=== PATIENT | male | born 2005 | race Caucasian/White ===

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

== ENCOUNTER 2023-08-29 15:47 | Emergency (ER) | payer SELFPAY ==
[2023-08-29 17:35] VITALS: BP 107/64; PULSE 101; RESP 20; TEMP 36.7; O2SAT 99; BMI 22.4
--- NOTE | 2023-08-29 17:37 | EXP.UTC ---
Discharge Plan Disposition Patient Disposition: Home, Self-Care Condition: Good Prescriptions Prescriptions: New ondansetron 4 mg Tablet,Disintegrating 4 mg PO Q8H PRN (Reason: Nausea) Qty: 12 0RF No Action Vyvanse 60 mg capsule 60 mg PO DAILY Referrals Follow up/Referrals: Oren Russo MD [Primary Care Provider] - See instructions Activity Restrictions/Add. Instructions Additional Instructions/Restrictions: Drink plenty of fluids. Water or an electrolyte drink like gatorade would be best. Take tylenol or ibuprofen for pain or fever. Take the zofran (ondesetron) as directed for nausea/vomiting. Follow up with your regular doctor. GO TO THE ER FOR ANY WORSENING SYMPTOMS Clinical Impressions Clinical Impression: Gastroenteritis, Acute viral syndrome Stand Alone Forms Stand Alone Forms: Work/School Release Instructions Patient Instructions: Viral Gastroenteritis, DI for Viral Gastroenteritis -- Adult, DI for Viral Syndrome, Ondansetron Discharge ED Provider: Quan Anaya [facility] General Stated complaint: body aches, diarrhes Time Seen by Provider: 08/29/23 17:37 History of Present Illness Provider Complaint: He states that since this morning he has nausea, body aches and diarrhea. He has had abdominal cramping on and off through the day. He denies abdominal pain. Related Data Home Medications Medication Instructions Recorded Confirmed lisdexamfetamine 60 mg capsule 60 mg PO DAILY ADHD 05/02/22 08/07/23 (Vyvanse) Previous Rx's Medication Instructions Recorded ondansetron 4 mg disintegrating 4 mg PO Q8H PRN Nausea #12 tabs 08/29/23 tablet Allergies Allergy/AdvReac Type Severity Reaction Status Date / Time Penicillins Allergy Unknown Verified 08/07/23 10:45 [facility] Disclaimer: The information contained in this section may have been updated after the patient was seen, as this information can be updated by other users. Medical History ADHD Social History Smoking Status: Never smoker alcohol intake: never substance use type: denies use current occupational status: employed Travel in the last 8 weeks: None household members: family housing: house ROS Obtained: Yes All systems reviewed & no additional complaints except as documented Constitutional Constitutional: Denies chills, Denies fever(s) and Reports poor appetite ENT Ears, Nose, Mouth, and Throat: Denies dizziness and Denies sore throat Cardiovascular Cardiovascular: Denies dyspnea Respiratory Respiratory: Denies chest congestion, Denies cough and Denies dyspnea Gastrointestinal Gastrointestingal: Reports as per HPI, cramping, diarrhea, nausea and vomiting; Denies abdominal pain Musculoskeletal Musculoskeletal: Denies arthralgias Integumentary/Breasts Skin/Breast: Denies rash Neurologic Neurologic: Denies dizziness Physical Exam General General appearance: alert and in no apparent distress Head Head exam: atraumatic and normocephalic Eye Eye exam: Present normal appearance, PERRL and EOMI ENT ENT exam: Present normal exam, normal oropharynx, mucous membranes moist, TM's normal bilaterally and normal external ear exam Neck Neck exam: Present normal inspection, full ROM and trachea midline; Absent tenderness, meningismus or lymphadenopathy Chest Chest inspection: Present normal inspection and symmetric chest wall rise; Absent tenderness, rash or abscess Respiratory Respiratory exam: Present normal lung sounds bilaterally; Absent respiratory distress, wheezes or stridor Cardiovascular Cardiovascular exam: Present regular rate and normal rhythm; Absent irregular rhythm, systolic murmur, diastolic murmur or JVD Abdominal Exam Abdominal exam: Present soft and hyperactive bowel sounds; Absent distention, tenderness, guarding, rebound, rigidity, psoas sign, obturator sign, heel tap sign, Gonzalez's sign, Rovsing's sign or tenderness at McBurney's Point Extremities Exam Extremities exam: Present normal inspection and full ROM; Absent tenderness Back Exam Back exam: Present normal inspection and full ROM; Absent tenderness, CVA tenderness (R) or CVA tenderness (L) Neurological Exam Neurological exam: Present alert, oriented X3 and CN II-XII intact Psychiatric Psychiatric exam: Present normal affect and normal mood Skin Skin exam: Present warm, dry, intact and normal color Lymphatic Lymphatic Findings: no adenopathy Medical Decision Making Medical Records Medical records reviewed: No I reviewed the patient's medical records. Panda Inquiry Pt receiving controlled substance: No Lab Data Lab results reviewed: Yes I reviewed the patient's lab results.
[2023-08-29 18:02] VITALS: BP 107/64; PULSE 101; RESP 20; TEMP 36.7; O2SAT 99
[2023-08-29 18:17] LABS: Coronavirus 19, PCR Not Detected (NotDetected); Influenza A, PCR Not Detected (NotDetected); Influenza B, PCR Not Detected (NotDetected)
[2023-08-29 19:11] LABS: UTC Strep Screen (Rapid) Negative (Negative)
[2023-08-29 19:12] LABS: UTC Influenza A Antigen Negative (Negative); UTC Influenza B Antigen Negative (Negative)
== END 2023-08-29 18:12 | disposition home or self-care (01) ==
PROVIDERS: Emergency Provider Nurse Practitioner Family; PCP Family Medicine
DX: K52.9 Noninfective gastroenteritis and colitis, unspecified (principal); B34.9 Viral infection, unspecified; R10.84 Generalized abdominal pain
CPT/HCPCS: 87636; 87804; 87880; 99204; 99212; G0463

== ENCOUNTER 2025-04-19 05:53 | Emergency (ER) | payer BC, SELFPAY ==
--- OUTSIDE RECORDS SUMMARY | 2024-03-31 09:30 | XMS_ITS ---
Author Organization [facility] PE D MAIN Address [address] [place] [address] Care Team Providers Care Enrollment Management Vice President Name Role Phone Josh Valenzuela Primary Care Provider REASON FOR VISIT med ck Encounters Encounter Location Date Provider Diagnosis [facility] [address] [address] 03/31/2024 Josh Valenzuela Plan Of Treatment Next Appt Details Provider Name:Yin Gonzalez, 06/04/2025 02:15:00 PM, [address] [place] [address], [phone], Progress Notes * Mahesh ALLEN KDOB:2005 (19 yo M)Acc No.[id number]:03/31/2024 Progress Notes Patient: Shola VERMA Mahesh Valverde Provider: Charisse Valenzuela MD :2005 A ge:18 Y S ex:Male Date:03/31/2024 [facility] [facility] [id number] Subjective: * Chief Complaints: * 1 . Med ck. * Medical History: Objective: * Vitals: Assessment: Plan: * Treatment: * * Electronic signature of Paul Valenzuela MD FAAP on 04/19/2025 at 06:16 AM EST Sign off status: Pending * Provider: Charisse Valenzuela MD Date: 1 Generated for Xavier emmanuel/Refugio/Dion on: 06/19/2024 06:16 AM EST
--- OUTSIDE RECORDS SUMMARY | 2024-06-02 09:15 | XMS_ITS ---
Author Organization [facility] PE D MAIN Address [address] [place] [address] Care Team Providers Care Medical Claims Assistant Name Role Phone Josh Valenzuela Primary Care Provider [phone] REASON FOR VISIT med ck Encounters Encounter Location Date Provider Diagnosis [facility] [address] [address] 06/02/2024 Josh Valenzuela Plan Of Treatment Next Appt Details Provider Name:Yin Gonzalez, 06/04/2025 02:15:00 PM, [address] [place] [address], [phone], Progress Notes * Mahesh ALLEN KDOB:2005 (19 yo M)Acc No.[id number]:06/02/2024 Progress Notes Patient: Shola VERMA Mahesh Valverde Provider: Charisse Valenzuela MD :2005 A ge:18 Y S ex:Male Date:06/02/2024 [address] [facility] [id number] Subjective: * Chief Complaints: * 1 . Med ck. * Medical History: Objective: * Vitals: Assessment: Plan: * Treatment: * * Electronic signature of Paul Valenzuela MD FAAP on 04/19/2025 at 06:15 AM EST Sign off status: Pending * Provider: Charisse Valenzuela MD Date: 1 08/03/2023 Generated for Xavier emmanuel/Refugio/Dion on: 06/19/2024 06:15 AM EST
--- OUTSIDE RECORDS SUMMARY | 2024-09-19 16:30 | XMS_ITS ---
Author Organization [facility] PE D MAIN Address [address] [facility] [address] [place] [address] Care Team Providers Care Dental Financial Coordinator Name Role Phone Josh Valenzuela Primary Care Provider Migration, Provider Unavailable Unavailable Allergies Allergen (clinical drug ingredient) Drug/Non Drug Allergy documented on EMR Reaction Allergy Type Onset Date Status Penicillin Unknown Drug Allergy Active REASON FOR VISIT Multum To [facility] Conversion Encounter Medications Medication SIG (Take, Route, Frequency, Duration) Notes Start Date End Date Status LISDEXAMFETAMINE 40 MG 1 CAP(S) ORALLY ONCE A DAY (IN THE MORNING); Duration: 30 DAYS *Please review for potential replacement for e-prescription and drug interaction check* 04/07/2024 Active Encounters Encounter Location Date Provider Diagnosis [facility] PED MAIN [address] [facility] [address] [place] [address] 09/19/2024 Provider Migration Adult attention deficit disorder F98.8 Assessments Encounter Date Diagnosis (ICD Code) Assessment Notes Treatment Notes Treatment Clinical Notes Section Notes 09/19/2024 Adult attention deficit disorder (ICD-10 - F98.8) Plan Of Treatment Medication Medication Name Sig Start Date Stop Date Notes LISDEXAMFETAMINE 40 MG 1 CAP(S) ORALLY ONCE A DAY (IN THE MORNING); Duration: 30 DAYS 04/07/2024 *Please review for potential replacement for e-prescription and drug interaction check* Next Appt Details Provider Name:Yin Gonzalez, 06/04/2025 02:15:00 PM, [address], [address], Progress Notes * TIFFANY Mahesh KDOB:2005 (19 yo M)Acc No.[id number]:09/19/2024 Patient: Mahesh ALVAREZ Provider: Reginald Peters :2005 A ge:18 Y S ex:Male Date:09/19/2024 Address:[address] [place], [place] [phone] Pcp:Josh Valenzuela Subjective: * Chief Complaints: * 1 . Multum To [facility] Conversion Encounter. * Medical History: * Allergies: P enicillin. Objective: * Vitals: Assessment: * Assessment: 1. A dult attention deficit disorder - F98.8 Plan: * Treatment: * * Electronic signature of Prov ider Migration on 04/19/2025 at 06:15 AM EST Sign off status: Pending * Provider: Reginald Peters Date: 0 09/19/2024 Generated for Xavier emmanuel/Refugio/Richsmitting on: 1 06/19/2024 06:15 AM EST
--- OUTSIDE RECORDS SUMMARY | 2024-11-12 06:45 | XMS_ITS ---
Author Organization [facility] PE D MAIN Address [address] [place] [address] Care Team Providers Care Human Resource Consultant Name Role Phone Josh Valenzuela Primary Care Provider REASON FOR VISIT yearly physical Encounters Encounter Location Date Provider Diagnosis [facility] [address] [address] 11/12/2024 Josh Valenzuela Plan Of Treatment Next Appt Details Provider Name:Yin Gonzalez, 06/04/2025 02:15:00 PM, [address] [place] [address], [phone], Progress Notes * Mahesh ALLEN KDOB:2005 (19 yo M)Acc No.[id number]:11/12/2024 Progress Notes Patient: Shola VERMA Mahesh Valverde Provider: Charisse Valenzuela MD :2005 A ge:18 Y S ex:Male Date:11/12/2024 [address] [facility] [id number] Subjective: * Chief Complaints: * 1 . Yearly physical. * Medical History: Objective: * Vitals: Assessment: Plan: * Treatment: * * Electronic signature of Paul Valenzuela MD FAAP on 04/19/2025 at 06:15 AM EST Sign off status: Pending * Provider: Charisse Valenzuela MD Date: 0 11/12/2024 Generated for Xavier emmanuel/Refugio/Dion on: 1 06/19/2024 06:15 AM EST
--- OUTSIDE RECORDS SUMMARY | 2024-11-20 06:00 | XMS_ITS ---
Author Organization [facility] PE D MAIN Address [address] [place] [address] Care Team Providers Care Sales Appointment Coordinator Name Role Phone Josh Valenzuela Primary Care Provider Kendra Lozada Unavailable [phone] REASON FOR VISIT med ck Encounters Encounter Location Date Provider Diagnosis [place] [facility] [address] [address] 11/20/2024 Kendra Lozada Plan Of Treatment Next Appt Details Provider Name:Yin Gonzalez, 06/04/2025 02:15:00 PM, [address] [place] [address], [phone], Progress Notes * Mahesh ALLEN KDOB:2005 (19 yo M)Acc No.[id number]:11/20/2024 Progress Notes Patient: Shola Mahesh VERMA Provider: LELE Moe :2005 A ge:18 Y S ex:Male Date:11/20/2024 Address:[address] [place], [place] [id number] Pcp:Josh Valenzuela Subjective: * Chief Complaints: * 1 . Med ck. * Medical History: Objective: * Vitals: Assessment: Plan: * Treatment: * * Electronic signature of Jaymie Lozada PA-C on 04/19/2025 at 06:15 AM EST Sign off status: Pending * Provider: LELE Moe Date: 0 11/20/2024 Generated for Xavier emmanuel/Refugio/Dion on: 1 06/19/2024 06:15 AM EST
--- OUTSIDE RECORDS SUMMARY | 2025-02-22 09:30 | XMS_ITS ---
Author Organization [facility] PE D MAIN Address [address] [place] [address] Care Team Providers Care Retail Selling Floor Leader Name Role Phone Josh Valenzuela Primary Care Provider Yin Aayla Unavailable [phone] REASON FOR VISIT med ck, follow fasting lab results from last visit Encounters Encounter Location Date Provider Diagnosis [facility] [address] [address] 02/22/2025 Yin Ayala Plan Of Treatment Next Appt Details Provider Name:Yin Gonzalez, 06/04/2025 02:15:00 PM, [address], [address], Progress Notes * Mahesh ALLEN KDOB:2005 (19 yo M)Acc No.[id number]:02/22/2025 Progress Notes Patient: Mahesh ALVAREZ Provider: Shola Ayala APRN :2005 A ge:19 Y S ex:Male Date:02/22/2025 Address:[address] [place], [place] [id number] Pcp:Josh Valenzuela Subjective: * Chief Complaints: * 1 . Med ck, follow fasting lab results from last visit. * Medical History: Objective: * Vitals: Assessment: Plan: * Treatment: * * Electronic signature of Glenn Ayala APRN on 04/19/2025 at 06:15 AM EST Sign off status: Pending * Provider: Shola Ayala APRN Date: 0 02/22/2025 Generated for Xavier emmanuel/Refugio/Dion on: 1 06/19/2024 06:15 AM EST
--- OUTSIDE RECORDS SUMMARY | 2025-03-05 09:15 | XMS_ITS ---
Author Organization [facility] PE D MAIN Address [address] [place] [address] Care Team Providers Care Procurement Inspector Name Role Phone TerrellJosh doll Primary Care Provider [phone] Yin Ayala Unavailable [phone] Allergies Allergen (clinical drug ingredient) Drug/Non Drug Allergy documented on EMR Reaction Allergy Type Onset Date Status Penicillin Unknown Drug Allergy Active REASON FOR VISIT Medication follow up Medications Medication SIG (Take, Route, Frequency, Duration) Notes Start Date End Date Status Lisdexamfetamine Dimesylate 40 MG 1 capsule in the morning Orally Once a day; Duration: 30 days 02/01/2025 Active Vital Signs Temperature 98.3 degrees Fahrenheit 03/05/20 25 Blood pressure systolic 116 mm Hg 03/05/20 25 Blood pressure diastolic 74 mm Hg 025 Heart Rate 80 /min 03/05/2025 Height 67.5 in 03/05/2025 Weight 150 lbs 03/05/2025 BMI 23.14 kg/m2 03/05/2025 Encounters Encounter Location Date Provider Diagnosis [address] [address] 03/05/2025 Yin Ayala Adult attention deficit disorder F98.8 Assessments Encounter Date Diagnosis (ICD Code) Assessment Notes Treatment Notes Treatment Clinical Notes Section Notes 03/05/2025 Adult attention deficit disorder (ICD-10 - F98.8) No changes made today. Discussed SE. Reviewed TYRELL obtained and saw no abnormalities/ concerns. f/u in 3 months for ADHD check or sooner PRN. Plan Of Treatment Treatment Notes Assessment Notes Adult attention deficit disorder No changes made today. Discussed SE. Reviewed TYRELL obtained and saw no abnormalities/concerns. f/u in 3 months for ADHD check or sooner PRN. Next Appt Details Follow Up: 3 Months,prn, Hazel son: Provider Name:Yin Gonzalez, 06/04/2025 02:15:00 PM, [address] [place] [address], [phone], Progress Notes * TIFFANY Mahesh KDOB:2005 (19 yo M)Acc No.[id number]:03/05/2025 Progress Notes Patient: Mahesh ALVAREZ Provider: Shola Ayala APRN :2005 A ge:19 Y S ex:Male Date:03/05/2025 Address:[address] [place], [place] [phone] Pcp:Josh Valenzuela Subjective: * Chief Complaints: * 1 . Medication follow up. * HPI: g en: 19 y/o male presents for FU on ADHD. Tolerating Vyvanse well with no adverse effects. 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 Is able to focus and complete task at hand. Denies CP, SOA or dizziness. Appetite is good. Weight is stable. No sleep issues. He has no concerns today. * ROS: R ESPIRATORY: no C hest congestion. n o C ough. C ARDIOLOGY: Reviewed, No Symptoms Reported: Y es. C ONSTITUTIONAL: no L oss of appetite. n o F ever. G ASTROENTEROLOGY: Reviewed, No Symptoms Reported: Y es. N EUROLOGY: no H eadache. n o T ingling numbness. ? * Medical History: A STHMA, ALLERGIC RHINITIS, FLOW MURMUR, ADHD, Recurrent otitis media. * Surgical History: t ympanostomy tube, Dr. Slime Schwarz 2005 and 2006, dental surgeries 2004. * Hospitalization/Major Diagno stic Procedure: C . Difficle 2005. * Family History: F ather: alive, currently incarcerated. M other: alive, substance abuse. P aternal Grand Father: . P aternal Grand Mother: alive. M aternal Grand Father: . M aternal Grand Mother: . M aternal aunt: alive, well. S iblings: alive. 2 brother(s) , 2 sister(s) - healthy. 1 son(s) , 1 daughter(s) - healthy. . * Social History: S moking A re you a:: nonsmoker. R ecreational drug use: no. Exercise: yes. Home smoke detector use: yes. Caffeine: yes, frequency: daily. Living Will: No. Alcohol: no. Sexually active: no. Travel outside [place]: no. Occupation: unemployed. * Medications: T aking Lisdexamfetamine Dimesylate 40 MG Capsule 1 capsule in the morning Orally Once a day , Medication List reviewed and reconciled with the patient * Allergies: P enicillin. Objective: * Vitals: N urse: be, Pain: 0, Temp: 98.3, RR: 16, HR: 80, BP: 116/74, Ht: 67.5, Wt: 150, BMI:23.14. * Examination: P sychology: General Appearance: N AD, pleasant. Grooming : a dequate. Eye contact : n ormal. Mood : p leasant. Heart: R egular Rate and Rhythm, no murmur, rubs or gallops. Lungs: L CTAB, No wheezes, crackles or rhonchi, Good air movement,. Abdomen: S oft, NTND, BSNA, No organomegaly or peritoneal signs.. Neurologic Exam: n o focal signs, Alert and oriented x 3. Assessment: * Assessment: 1. A dult attention deficit disorder - F98.8 (Primary) Plan: * Treatment: * Follow Up: 3 Months,prn * * Sign off status: Completed true * Provider: Shola Ayala APRN Date: 0 03/05/2025 Generated for Xavier emmanuel/Refugio/Antoninoitting on: 06/19/2024 06:15 AM EST History and Physical Notes * HPI (History of Present Illness) Category Sub-Category Detail Notes Category Not es gen 19 y/o male pre sents for FU on ADHD. Tolerating Vyvanse well with no adverse effects. 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 Is able to focus and complete task at hand. Denies CP, SOA or dizziness. Appetite is good. Weight is stable. No sleep issues. He has no concerns today Examination Category Sub-Category Detail Notes Category Not es Psychology Heart: Regular Rate and Rhythm, no murmur, rubs or gallops Lungs: LCTAB, No wheezes, c rackles or rhonchi, Good air movement, Abdomen: Soft, NTND, BSNA, No organomegaly or peritoneal signs. General Appearance: NAD, pleasant Neurologic Exam: no focal signs, Aler t and oriented x 3 Grooming : adequate Eye contact : normal Mood : pleasant
[2025-04-19 06:00] VITALS: BP 138/84; PULSE 83; RESP 16; TEMP 36.7; O2SAT 100; BMI 22.1
[2025-04-19] MEDS: ERYTHROMYCIN BASE 1 GM OINT...G. 0.5 GM OP (06:09)
[2025-04-19] MEDS: TETRACAINE 0.5% OPTH SOL 15ML OP (06:09)
[2025-04-19] MEDS: FLUORESCEIN SODIUM 1MG STRIP 1 MG OP (06:09)
--- NOTE | 2025-04-19 06:09 | ED_ITS ---
Discharge Plan Disposition Patient Disposition: Home, Self-Care Condition: Good Prescriptions Prescriptions: No Action Vyvanse 60 mg capsule 60 mg PO DAILY ondansetron 4 mg Tablet,Disintegrating 4 mg PO Q8H PRN (Reason: Nausea) Qty: 12 0RF Referrals Follow up/Referrals: Oren Russo MD [Primary Care Provider, Internal Medicine] - See instructions Activity Restrictions/Add. Instructions Additional Instructions/Restrictions: You were evaluated in the ER and are believed to be appropriate for discharge at this time. Use the provided erythromycin ointment. Place 1/2 inch strip into the right eye every 4 hours until directed to stop by ophthalmology. Go to the ophthalmology clinic today, they are going to call you for an appointment to be seen today. The address is as follows [address], [place] You can park in the parking garage and take the elevator up to level C where you can walk over towards [facility] which shares a building with [facility]. Ophthalmology is on the 4th/5th floor in that part of the building. Follow-up with ophthalmology today, Also follow-up with your primary care doctor for reevaluation. please wear safety glasses in the future. Return to the ER with any new, worsening, or otherwise concerning symptoms. Clinical Impressions Clinical Impression: Foreign body in eyeball, right Print Language Print Language: Nepali Discharge ED Provider: Heriberto Lomax General Adult HPI General Chief complaint: Eye Problems Stated complaint: foreign object in eye Time Seen by Provider: 04/19/25 05:54 Mode of Arrival: Ambulatory Source of Information: Patient Description of Symptoms (Recalled from ER Triage Doc. 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 Pt reports pain intermittent with worse at night. History of Present Illness HPI narrative: 19-year-old male reports being otherwise healthy, no daily medications, allergy to penicillin presents to the ER for complaints of right eye foreign body. 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 He thought it was out but it was irritating him all night and this morning he could see the black dot in front of the eye just above the pupil. Eye is red, painful, tearing but no discharge. No fevers or chills, no swelling, no other injuries. Unknown last tetanus shot. Related Data Home Medications ?Medication ?Instructions ?Recorded ?Confirmed lisdexamfetamine 60 mg capsule 60 mg PO DAILY ADHD 08/07/23 (Vyvanse) Previous Rx's ?Medication ?Instructions ?Recorded ondansetron 4 mg disintegrating 4 mg PO Q8H PRN Nausea #12 tabs 08/29/23 tablet Allergies Allergy/AdvReac Type Severity Reaction Status Date / Time Penicillins Allergy Unknown Verified 08/07/23 10:45 [facility] Disclaimer: The information contained in this section may have been updated after the patient was seen, as this information can be updated by other users. Medical History ADHD Social History Smoking Status: Never smoker alcohol intake: never substance use type: denies use current occupational status: employed Travel in the last 8 weeks?: None household members: family housing: house Have you lived/traveled outside US in past 30 days?: No Contact w/someone who lives/traveled outside US past 30 days?: No Exposure to someone with infectious disease in past 14 days?: No Do you have a fever (greater than 100.4 F or 38 C)?: No Have you tested positive for COVID-19?: No Exposed to someone with COVID-19 in past 14 days?: No Do you have a sore throat?: No Do you have a cough?: No Do you have any weakness?: No Do you have any diarrhea?: No Are you experiencing any unusual bleeding?: No Do you have any muscle aches/pain?: No Do you have any abdominal pain?: No Are you experiencing loss of taste or smell?: No Other Medical History Have you received the Pneumonia Vaccine: No ROS Obtained: Yes Systems reviewed as appropriate & no additional complaints except as documented Per HPI Physical Exam General General appearance: alert and in no apparent distress Head Head exam: atraumatic and normocephalic Eye Eye exam: Present PERRL, EOMI and conjunctival injection (Right eye); Absent scleral icterus Expanded Eye Exam Visual acuity (R) = 20/: 40 Visual acuity (L) = 20/: 25 With correction: No IOP (R) in mmH IOP (L) in mmH IOP measured with: [employer] (i-care) Comment: Fluorescein exam with no corneal ulcer or abrasion, small black foreign body at the 12 o'clock position just superior to the edge of the pupil which is 3 mm at this time. No hyphema or hypopyon, negative Jose sign ENT ENT exam: Present mucous membranes moist Neck Neck exam: Present normal inspection and full ROM Chest Chest inspection: Present symmetric chest wall rise Respiratory Respiratory exam: Absent respiratory distress or stridor Cardiovascular Cardiovascular exam: Present regular rate and normal rhythm Extremities Exam Extremities exam: Present full ROM Neurological Exam Neurological exam: Present alert and oriented X3; Absent motor sensory deficit Psychiatric Psychiatric exam: Present normal affect and normal mood Skin Skin exam: Present warm and dry Medical Decision Making Medical Records Medical records reviewed: Yes I reviewed the patient's medical records. Screening: Per USPSTF and CDC recommendations, given the prevalence of disease in our region, it is our hospital?s policy to screen for HIV and viral Hepatitis for all patients aged 18 and over and those with ongoing risk factors. Panda Inquiry Pt receiving controlled substance: No Vital Signs: 04/19/25 06:00 Temperature 98.1 F Temperature Source Oral Pulse Rate [Radial] 83 Respiratory Rate 16 Blood Pressure [Right Arm] 138/84 Blood Pressure Mean [Right Arm] 102 Blood Pressure Position [Right Arm] Sitting 02 Sat by Pulse Oximetry 100 Oxygen Delivery Method Room Air Orders (Tests/Meds): ED MEDICATIONS Discontinued Medications Generic Name Dose Route Start Last Admin Trade Name Freq PRN Reason Stop Dose Admin Erythromycin 0.5 gm 04/19/25 06:08 04/19/25 06:09 Erythromycin Base 1 Gm Oint...G. OP 04/19/25 06:09 0.5 gm ONCE ONE Administration Fluorescein Sodium 1 mg 04/19/25 05:54 04/19/25 06:09 Fluorescein Sodium 1mg Strip OP 04/19/25 05:55 1 mg ONCE ONE Administration Tetracaine HCl 0 ml 04/19/25 05:54 04/19/25 06:09 Tetracaine 0.5% Opth Lynette 15ml OP 04/19/25 05:55 15 ml ONCE ONE Administration Medical Decision Narrative: In summary, otherwise healthy 19-year-old male presents to the ER for concerns of foreign body/foreign body sensation in the right eye. Differential diagnose includes but is not limited to corneal abrasion, corneal ulcer, foreign body, hyphema, hypopyon, open globe. On evaluation patient is hemodynamically stable, afebrile, slightly decreased visual acuity in the right eye compared to the left, tetracaine and fluorescein were administered, patient has no corneal ulcer or abrasion, no Sidel sign, no evidence of open globe. Conjunctive was injected, there is obvious small black foreign body less than 1 mm at the 12 o'clock position of the cornea. No hyphema or hypopyon. I attempted to remove the foreign body, see procedure note for details. Procedure: Ocular foreign body removal, right eye. Performed by: Heriberto Lomax MD I attempted to remove the foreign body with flushing, cotton swab, careful scraping with an 18-gauge needle. I was able to remove small pieces of the foreign body but because it is a fibrous material, only pieces of it were coming out and I was not able to remove all of it. Procedure terminated because it was not successful and I did not want to cause further damage to the cornea. No complications. Due to unsuccessful removal of the foreign body, I placed erythromycin in the eye for lubrication and to antibiotic prophylaxis. Reached out to and spoke with Dr. Mera with ophthalmology. She recommended follow-up in the ophthalmology clinic today. They are going to call the patient with an appointment time. She did recommend patient continues using the erythromycin ointment until his appointment. The address for the clinic was provided to the patient. Patient is agreeable to going to the clinic when they call him for his appointment which he knows is going to be today. Patient was given instructions on symptomatic management, use of erythromycin ointment, follow up instructions, and return precautions for the emergency department. Patient indicated understanding and was discharged in stable condition. Critical Care Critical Care Time Critical Care Time: No
--- NOTE | 2025-04-19 06:13 | PC.NURSE ---
Spoke with [facility] transfer, speaking with them at this time
--- OUTSIDE RECORDS SUMMARY | 2025-04-19 06:15 | XMS_ITS | Patient Health Record ---
Author Organization [facility] Address [address] [place] [address] Care Team Providers Care Hosting Engineer Name Role Phone Josh Valenzuela Primary Care Provider Yin Ayala Unavailable [phone] Kendra Lozada Unavailable [phone] Migration, Provider Unavailable Unavailable Allergies Allergen (clinical drug ingredient) Drug/Non Drug Allergy documented on EMR Reaction Allergy Type Onset Date Status Penicillin Unknown Drug Allergy Active Results Component Value Reference Range Notes LIPID PANEL, STANDARD (7600) Reviewed date:12/02/2024 10:14:09 AM Interpretation: Performing Lab:[facility], [facility] [id number] [facility], [facility] CenterNuicTJ[address] Oscar Ocasio Notes/Report: FASTING: YES FASTING:YES NON-FASTING; NON-FASTING; NON-FASTING; NON-FASTING CHOLESTEROL, TOTAL 145 <200 mg/dL HDL CHOLESTEROL 48 > OR = 40 mg/dL TRIGLYCERIDES 56 <150 mg/dL LDL-CHOLESTEROL 83 Reference range: <100 Desirable range <100 mg/dL for primary prevention; <70 mg/dL for patients with CHD or diabetic patients with > or = 2 CHD risk factors. LDL-C is now calculated using the Bart calculation, which is a validated novel method providing better accuracy than the Friedewald equation in the estimation of LDL-C. Sameer VARELA et al. LI. 2013;310(19): 8388-5361 (http://education.[employer]/faq/JAF046) CHOL/HDLC RATIO 3.0 <5.0 (calc) NON HDL CHOLESTEROL 97 <130 mg/dL (calc) factor, treating to a non-HDL-C goal of <100 mg/dL (LDL-C of <70 mg/dL) is considered a therapeutic option. For patients with diabetes plus 1 major ASCVD risk COMPREHENSIVE METABOLIC [facility] (13195) Reviewed date:12/02/2024 10:14:09 AM Interpretation: Performing Lab:[facility], [facility] CenterHrgiVH[address] Oscar Ocasio Notes/Report: NON-FASTING; NON-FASTING; NON-FASTING; NON-FASTING FASTING:YES FASTING: YES GLUCOSE 87 65-99 mg/dL Fasting reference interval UREA NITROGEN (BUN) 16 7-25 mg/dL CREATININE 0.85 0.60-1.24 mg/dL EGFR 128 > OR = 60 mL/min/1.73m2 BUN/CREATININE RATIO SEE NOTE: 6-22 (calc) Not Reported: BUN and Creatinine are within reference range. SODIUM 139 135-146 mmol/L POTASSIUM 4.2 3.5-5.3 mmol/L CHLORIDE 108 98-110 mmol/L CARBON DIOXIDE 25 20-32 mmol/L CALCIUM 9.2 8.6-10.3 mg/dL PROTEIN, TOTAL 6.1 6.1-8.1 g/dL ALBUMIN 4.2 3.6-5.1 g/dL GLOBULIN 1.9 1.9-3.7 g/dL (calc) ALBUMIN/GLOBULIN RATIO 2.2 1.0-2.5 (calc) BILIRUBIN, TOTAL 0.6 0.2-1.2 mg/dL ALKALINE PHOSPHATASE 61 36-130 U/L AST 16 10-40 U/L ALT 9 9-46 U/L CBC (INCLUDES DIFF/PLT) (639 9) Reviewed date:12/02/2024 10:14:09 AM Interpretation: Performing Lab:[facility] [id number] [address], [facility] CenterSblnVS[address] Oscar Ocasio Notes/Report: NON-FASTING; NON-FASTING; NON-FASTING; NON-FASTING FASTING:YES FASTING: YES WHITE BLOOD CELL COUNT 3.6 3.8-10.8 Thousand/ uL RED BLOOD CELL COUNT 5.09 4.20-5.80 Million/uL HEMOGLOBIN 15.4 13.2-17.1 g/dL HEMATOCRIT 47.1 38.5-50.0 % MCV 92.5 80.0-100.0 fL MCH 30.3 27.0-33.0 pg MCHC 32.7 32.0-36.0 g/dL For adults, a slight decrease in the calculated MCHC value (in the range of 30 to 32 g/dL) is most likely not clinically significant; however, it should be interpreted with caution in correlation with other red cell parameters and the patient's clinical condition. RDW 12.3 11.0-15.0 % PLATELET COUNT 198 140-400 Thousand/uL MPV 10.7 7.5-12.5 fL ABSOLUTE NEUTROPHILS 2056 1802-0580 cells/uL ABSOLUTE LYMPHOCYTES 8258 271-3573 cells/uL ABSOLUTE MONOCYTES 353 200-950 cells/uL ABSOLUTE EOSINOPHILS 11 15-500 cells/uL ABSOLUTE BASOPHILS 22 0-200 cells/uL NEUTROPHILS 57.1 LYMPHOCYTES 32.2 MONOCYTES 9.8 EOSINOPHILS 0.3 BASOPHILS 0.6 TSH W/REFLEX TO FT4 (23451) Reviewed date:12/02/2024 10:14:10 AM Interpretation: Performing Lab:CB, [facility] [id number] [facility] [address], [facility] CenterWvpoXY[address] Oscar Ocasio Notes/Report: NON-FASTING; NON-FASTING; NON-FASTING; NON-FASTING FASTING:YES FASTING: YES TSH W/REFLEX TO FT4 1.20 0.40-4.50 mIU/L Medications Medication SIG (Take, Route, Frequency, Duration) Notes Start Date End Date Status Lisdexamfetamine Dimesylate 40 MG 1 capsule in the morning Orally Once a day; Duration: 30 days 04/06/2025 Active Problems Problem Type SNOMED Code ICD Code Onset Dates Problem Status W/U Status Risk Notes Problem Seasonal allergy (126457257) Environmental and seasonal allergies (J30.89) Active confirmed Problem Acute suppurative otitis media without spontaneous rupture of ear drum (93194629) Recurrent acute suppurative otitis media of right ear without spontaneous rupture of tympanic membrane (H66.004) Active confirmed Problem Adult attention deficit disorder (419201299) Adult attention deficit disorder (F98.8) Active confirmed Vital Signs Heart Rate 80 /min 03/05/2025 Temperature 98.3 degrees Fahrenheit 03/05/2025 Blood pressure diastolic 74 mm Hg 03/05/2025 Height 67.5 in 03/05/2025 Blood pressure systolic 116 mm Hg 03/05/2025 Weight 150 lbs 03/05/2025 BMI 23.14 kg/m2 03/05/2025 Encounters Encounter Location Date Provider Diagnosis [facility] [address] [facility] [address] [place] [address] 09/19/2024 Provider Migration Adult attention deficit disorder F98.8 [facility] [address] [address] 10/22/2024 Kendra Lozada Attention deficit disorder (ADD), child, with hyperactivity F90.9 [facility] [address] [address] 11/23/2024 Kendra Lozada Routine adult health maintenance Z00.00 ; Attention deficit disorder (ADD), child, with hyperactivity F90.9 ; Family history of hyperlipidemia Z83.438 ; Fatigue, unspecified type R53.83 and Medication monitoring encounter Z51.81 [facility] [address] [address] 03/05/2025 Yin Ayala Adult attention deficit disorder F98.8 [facility] [address] [address] 07/17/2024 Josh Besson Adult attention deficit disorder F98.8 [facility] [address] [facility] [address] [place] [address] 10/22/2024 Josh Besson Adult attention deficit disorder F98.8 [facility] [address] [facility] [address] [place] [address] 11/23/2024 Josh Besson [facility] [address] [address] 12/28/2024 Josh Besson [facility] [address] [address] 02/01/2025 Josh Besson [facility] [address] [address] 03/04/2025 Josh Besson [facility] [address] [place] [address] 03/05/2025 Josh Valenzuela [facility] [address] [facility] [address] [place] [address] 04/05/2025 Josh Valenzuela Assessments Encounter Date Diagnosis (ICD Code) Assessment Notes Treatment Notes Treatment Clinical Notes Section Notes 09/19/2024 Adult attention deficit disorder (ICD-10 - F98.8) 10/22/2024 Adult attention deficit disorder (ICD-10 - F98.8) 11/23/2024 Routine adult health maintenance (ICD-10 - Z00.00) Routine age appropriate guidance and counseling. Vaccines at health dept, last Tdap was 2015. No indications for early cancer screening. 11/23/2024 Attention deficit disorder (ADD), child, with hyperactivity (ICD-10 - F90.9) No changes made today. Refilled Rx for ADHD (see telephone encounter). Discussed SE. Reviewed TYRELL report from 10/22/2024 and CSA, both are appropriate. No abnormalities/c oncerns. Will trend weight at follow-up appt. He states he thinks he lost 2 lbs from his strenuous work environment. F/u in 3 months for ADHD check or sooner PRN. 03/05/2025 Adult attention deficit disorder (ICD-10 - F98.8) No changes made today. Discussed SE. Reviewed TYRELL obtained and saw no abnormalities/c oncerns. f/u in 3 months for ADHD check or sooner PRN. 07/17/2024 Adult attention deficit disorder (ICD-10 - F98.8) 10/22/2024 Attention deficit disorder (ADD), child, with hyperactivity (ICD-10 - F90.9) Discussed treatment options, medication administration, caution as this is a controlled substance, potential side effects, and realistic expectations. Restarted Rx for ADHD (see telephone encounter). Discussed SE. Reviewed TYRELL report from 10/22/2024 and CSA, both are appropriate. No abnormalities/c oncerns. Will trend weight at follow-up appt. F/u in 4 weeks to trend weight while starting medication for ADHD. 11/23/2024 Family history of hyperlipidemia (ICD-10 - Z83.438) Patient is not fasting so will return on another day to have his fasting labs drawn. I personally will review all labs once final. 11/23/2024 Fatigue, unspecified type (ICD-10 - R53.83) I personally will review all labs once final. 11/23/2024 Medication monitoring encounter (ICD-10 - Z51.81) As above for ADHD. I personally will review all labs once final. 11/23/2024 Other Patient discussed with Attending Dr. Valenzuela who agrees with the plan of care above. Plan Of Treatment Pending Test Test Name Order Date X ray : Chest 06/21/2006 N-Clostridium dificile Toxin 12/19/2006 Rapid Flu, A 06/06/2018 Rapid Flu, B 06/06/2018 Next Appt Details Provider Name:Yinrandee Gonzalez, 06/04/2025 02:15:00 PM, [address] [place] [address], [id number], Insurance Providers Payer Name Payer Address Payer Phone Subscriber Number Group Number Insured Name Patient Relationship to Insured Coverage Start Date Coverage End Date [facility] [address] [place] [address] [id number] Mahesh Castanon Self - patient is the insured Medical (General) History Medical History History ICD Code ASTHMA ALLERGIC RHINITIS FLOW MURMUR ADHD Recurrent otitis media Surgical History Surgery Date(Month/Year) tympanostomy tube, Dr. Slime Schwarz 2006 an d 2006 dental surgeries 2005 Hospitalization History Reason Date(Month/Year) Pranav Herrera 2006
[2025-04-19 06:41] VITALS: BP 136/74; PULSE 70; RESP 18; TEMP 36.7; O2SAT 100
== END 2025-04-19 06:42 | disposition home or self-care (01) ==
PROVIDERS: Emergency Provider Emergency Medicine; PCP Family Medicine
DX: S05.51XA Penetrating wound with foreign body of right eyeball, initial encounter (principal); W44.8XXA Other foreign body entering into or through a natural orifice, initial encounter
CPT/HCPCS: 99283